=== PATIENT | female | born 1950 | race Caucasian/White ===

== ENCOUNTER → 2017-01-17 | Outpatient (CLI) | payer MEDICARE ==
--- NOTE | 2017-01-20 07:07 | RADIOLOGY REPORT PS360 ---
MRI-C-SPINE W/O, MRI-3D RENDERING/MYELOGRAM HISTORY: Spinal stenosis, neck pain and stiffness, pain rating the back of the head and right shoulder CERVICAL STENOSIS OF SPINAL CANAL, DDD ORDERING PHYSICIAN: Jojo Cabrera APRN PATIENT AGE: 66 years COMPARISON: 02/05/2012 TECHNIQUE: Standard multiplanar multiecho sequences are performed without contrast. 3-D MIP and myelographic images are also rendered and reviewed FINDINGS: There is normal alignment. C2-C3 and C3-C4 unremarkable. C4-C5: Minimal anterolisthesis of C4 on C5. C5-C6: Degenerative disc disease with endplate hypertrophic change and bulging disc with uncovertebral hypertrophy and bilateral lateral recess and foraminal narrowing right greater than left.. Borderline stenosis C6-C7: Degenerative disc disease with bulging disc along with endplate hypertrophic change with broad-based disc osteophyte complex with bilateral foraminal narrowing and bilateral lateral recess narrowing. Borderline stenosis C7-T1: Unremarkable. IMPRESSION: 1. Degenerative disc disease C5-C6 with endplate hypertrophic change and bulging disc with uncovertebral hypertrophy and bilateral lateral recess and foraminal narrowing right greater than left. These findings are somewhat worse than when compared to the previous exam. 2. Degenerative disc disease 67 with bulging disc along with endplate hypertrophic change with broad-based disc osteophyte complex with bilateral foraminal narrowing and bilateral lateral recess narrowing. These findings are slightly worse. 3. No extruded herniated disc evident. Borderline stenosis is present at C5-6 and C6-C7
--- NOTE | 2017-02-04 14:23 | RADIOLOGY REPORT PS360 ---
DIG MAMM-SCREEN [place] W/CAD CAD Screening COMPARISON: Analog mammograms 05/31/2009 from [facility] INDICATION: There is no personal or family history of breast cancer. TECHNIQUE: Standard CC and MLO images were obtained. R2 CAD reviewed. FINDINGS: The breasts are composed primarily of fat with scattered fibroglandular densities throughout both breasts. There is no new or suspicious lesion in either breast and there are no suspicious microcalcifications. There is a tiny benign-appearing calcification right breast. IMPRESSION: Fibrofatty parenchyma with no suspicious lesion seen recommend yearly follow-up BI-RADS CATEGORY: 1_Negative RECOMMENDED FOLLOWUP: 12 months (A letter has been sent to the patient regarding results of the study.)
--- NOTE | 2017-02-04 14:23 | RADIOLOGY REPORT PS360 ---
DIG MAMM-SCREEN [place] W/CAD CAD Screening COMPARISON: Analog mammograms 05/31/2009 from [facility] INDICATION: There is no personal or family history of breast cancer. TECHNIQUE: Standard CC and MLO images were obtained. R2 CAD reviewed. FINDINGS: The breasts are composed primarily of fat with scattered fibroglandular densities throughout both breasts. There is no new or suspicious lesion in either breast and there are no suspicious microcalcifications. There is a tiny benign-appearing calcification right breast. IMPRESSION: Fibrofatty parenchyma with no suspicious lesion seen recommend yearly follow-up BI-RADS CATEGORY: 1_Negative RECOMMENDED FOLLOWUP: 12 months (A letter has been sent to the patient regarding results of the study.)
== END ==
LOC: RAD 15:52
DX: M48.02 Spinal stenosis, cervical region (principal); M50.30 Other cervical disc degeneration, unspecified cervical region; Z12.31 Encounter for screening mammogram for malignant neoplasm of breast
CPT/HCPCS: G0202